=== PATIENT | female | born 1950 | race Caucasian/White ===

== ENCOUNTER → 2017-08-07 | Day surgery (SDC) | payer MEDICARE ==
[2017-08-06 11:52] LABS: BASOPHILS % 0.4 % (0.0-1.0); EOSINOPHILS # (AUTO) 0.1 (0.0-0.4); EOSINOPHILS % 1.9 % (0.0-6.0); HEMATOCRIT 36.5 % (34.2-44.1); HEMOGLOBIN 11.5 g/dL (12.0-16.0); LYMPHOCYTES # (AUTO) 1.2 (1.0-3.2); MEAN CORPUSCULAR HEMOGLOBIN 27.8 pg (28-32); MEAN CORPUSCULAR HGB CONC 31.5 g/dL (31-35); MEAN CORPUSCULAR VOLUME 88.2 fL (81-99); MONOCYTES # (AUTO) 0.5 (0.2-0.8); NEUTROPHILS % 63.5 % (38.7-80.0); PLATELET COUNT 225 x10e3/uL (140-360); RED BLOOD COUNT 4.14 x10e6/uL (3.6-5.1); RED CELL DISTRIBUTION WIDTH 13.5 % (11.7-14.4)
[2017-08-06 12:13] LABS: ANION GAP 13.7 mmol/L (8-16); BLOOD UREA NITROGEN 13 mg/dL (7-26); BUN/CREATININE RATIO 17 (6-25); CALCIUM 9.7 mg/dL (8.4-10.2); CARBON DIOXIDE 32 mmol/L (22-29); CHLORIDE 106 mmol/L (98-107); CREATININE, SERUM 0.76 mg/dL (0.57-1.11); EST GLOMERULAR FILTRATION RATE > 60 ML/MIN (60-); GLUCOSE 106 mg/dL (74-118); POTASSIUM 4.7 mmol/L (3.5-5.1); SODIUM 147 mmol/L (136-145)
--- NOTE | 2017-08-06 12:22 | Diagnostic Imaging Report ---
PROCEDURE: Frontal and lateral views of the chest. COMPARISON: None. INDICATIONS: PRE-OP, RIGHT SHOULDER. DENIES CHEST COMPLAINTS FINDINGS: Lines/tubes: None. Lungs: The lungs are well inflated. Ill-defined 5 mm nodular density projecting in the left lower lung on the frontal view only, not seen on the lateral view, likely represents summation of vessels shadows. There is no evidence of pneumonia or pulmonary edema. Pleura: There is no pleural effusion or pneumothorax. Heart and mediastinum: Cardiac silhouette is mildly enlarged. Pulmonary vasculature is normal. Bones and soft tissues: No acute bony abnormality. Degenerative changes in the thoracic spine. IMPRESSION: 1. mildly enlarged cardiac silhouette, without acute cardiopulmonary abnormalities. 2. 5 mm nodular density projecting in the left lower lung on the frontal view likely represents summation of vessels shadows. Prior films, if available, would be helpful for comparison. If no prior films can be obtained, recommend chest PA and lateral in 3 months to document stability. Alternatively, a chest CT may be obtained. Jesse Dixon M.D. Dictated by: Jesse Dixon M.D. on 08/06/2017 at 12:25 Electronically approved by: Jesse Dixon M.D. on 08/06/2017 at 12:25
[~2017-08-07] MED LIST: ASPIR 8181 MG PO; CALCIUM PO; CEFAZOLIN SOD 2 GM/D5W 50ML 50 ML IV ONE; DEXAMETHASONE SOD PHOS INJ 4 MG/ML VIAL ONE; DIAZEPAM5 MG PO; FENTANYL CITRATE/PF 100MCG/2 ML INJ ONE; FEOSOL PO; GLYCOPYRROLATE INJ 1MG/ 5 ML SYR ONE; HYDROCHLOROTHIA25 MG PO; LABETALOL HCL 20 ML ONE; LIDOCAINE HCL 2% LOCAL 20 ML VIAL ONE; LIDOCAINE HCL 2% LOCAL INJ 5 ML SDV VIAL INJ ONE; LOSARTAN POTASS50 MG PO; METOPROLOL SUCC50 MG PO; MIDAZOLAM HCL 2 MG/2 ML VIAL ONE; MULTIVITAMINS1 EAC7 PO; NEOSTIGMINE 5 MG/5ML SYR ONE; ONDANSETRON HCL INJ 2 MG/ML VIAL ONE; PRAVASTATIN SOD20 MG PO; PROPOFOL IV EMULSION 10 MG/ML 20 ML VIAL ONE; ROCURONIUM BROMIDE 10 MG/ML 5ML VIAL ONE; ROPIVACAINE 0.5% 5 MG/ML 30 ML SDV ONE; SEVOFLURANE INHAL SOLN 250 ML PEN BTL ONE; VITAMIN D3 PO
--- OUTSIDE RECORDS SUMMARY | 2017-08-07 07:11 | XMS REPORT ---
Author Author [facility] Address Unknown Phone Unavailable Care Team Providers Care Bag Machine Tender Name Role Phone HEATHER CUNNINGHAM Unavailable Unavailable Problems This patient has no known problems. Allergies, Adverse Reactions, Alerts This patient has no known allergies or adverse reactions. Medications This patient has no known medications. Results Test Description Test Time Test Comments Text Results Atomic Results Result Comments CHEST 2 VIEWS [place] [id number] Patient Name: JIGNESH MILLARD MR #: [id number] : 1950 Age/Sex: 66/F Req #: [id number] Adm Physician: Ordered by: HEATHER CUNNINGHAM MD Report #: [id number] Location: OR Room/Bed: Procedure: [id number] DX/CHEST 2 VIEWS Exam Date: 08/06/17 Exam Time: 1200 REPORT STATUS: Signed PROCEDURE: Frontal and lateral views of the chest. COMPARISON: None. INDICATIONS: PRE-OP, RIGHT SHOULDER. DENIES CHEST COMPLAINTS FINDINGS: Lines/tubes: None. Lungs: The lungs are well inflated. Ill-defined 5 mm nodular density projecting in the left lower lung on the frontal view only, not seen on the lateral view, likely represents summation of vessels shadows. There is no evidence of pneumonia or pulmonary edema. Pleura: There is no pleural effusion or pneumothorax. Heart and mediastinum: Cardiac silhouette is mildly enlarged. Pulmonary vasculature is normal. Bones and soft tissues: No acute bony abnormality. Degenerative changes in the thoracic spine. IMPRESSION: 1. mildly enlarged cardiac silhouette, without acute cardiopulmonary abnormalities. 2. 5 mm nodular density projecting in the left lower lung on the frontal view likely represents summation of vessels shadows. Prior films, if available, would be helpful for comparison. If no prior films can be obtained, recommend chest PA and lateral in 3 months to document stability. Alternatively, a chest CT may be obtained. Tadeo Dixon M.D. Dictated by: Tadeo Dixon M.D. on 08/06/2017 at 12:25 Electronically approved by: Tadeo Dixon M.D. on 2017 at 12:25 Dictated By: TADEO DIXON MD 1225 Transcribed By: EDE on 1225 COPY TO: HEATHER CUNNINGHAM MD
--- NOTE | 2017-08-08 09:33 | Operative Report ---
DATE OF PROCEDURE: August 07, 2017 PREOPERATIVE DIAGNOSES 1. Right shoulder rotator cuff tear. 2. Right shoulder acromioclavicular joint arthrosis. POSTOPERATIVE DIAGNOSES 1. Right shoulder rotator cuff tear. 2. Right shoulder synovitis. 3. 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 4. Right shoulder intra-articular loose bodies. 5. Right shoulder acromioclavicular joint arthritis. OPERATIONS/PROCEDURES PERFORMED 1. The patient underwent a right shoulder examination under anesthesia. 2. Right shoulder arthroscopy. 3. Right shoulder arthroscopic debridement of synovitis. 4. Right shoulder arthroscopic chondroplasty of the glenoid and humeral head. 5. Right shoulder arthroscopic removal of several intra-articular loose bodies. 6. Right shoulder arthroscopic subacromial decompression and acromioplasty. 7. Right shoulder arthroscopic rotator cuff repair. 8. Right shoulder arthroscopic distal clavicle resection. FACILITY ENVIRONMENTAL TECHNICIAN: None. BLOOD LOSS: Approximately 10 mL. ANESTHESIA: General endotracheal intubation anesthesia, as well as a regional block. IV FLUIDS: Per the anesthesia record. BRIEF DESCRIPTION OF THE PATIENT'S OPERATIVE PROCEDURE: Ms. Morris was taken to the operating room and placed in the supine position on the operating table. Following induction of general anesthesia, the patient's operating room table was converted to a beach chair type position. The patient was found to have a stable shoulder. There were no gross abnormalities. The upper extremity was prepped and draped in a standard surgical fashion. Standard posterolateral and anterior portal was created without difficulty. Scope was placed in the shoulder joint atraumatically. Examination of glenohumeral articulation demonstrated chondromalacia of both surfaces. There was synovitis in the shoulder joint. There were multiple loose bodies within the shoulder. There was a near full-thickness rotator cuff tear involving the anterior leading edge of the rotator cuff tissue. The shaver was placed in the shoulder joint, and the synovitis was debrided. Chondroplasties of the humeral head and glenoid were performed. The intra-articular loose bodies were also removed at this time. A shaver was used to debride the torn rotator cuff. The remaining fibers of the rotator cuff tissue were elevated from their insertion. The shaver was again used to debride the insertion site for the rotator cuff tissue to a bleeding bony bed. The shoulder was then deflated of its sterile normal saline. The scope was then placed in the subacromial space. Significant bursal inflammation was encountered. A lateral portal was created through an outside-in technique. A shaver was used to provide the patient a bursectomy. The rotator cuff injury was easily identified. A shaver was used to further debride the insertion site to a bleeding bony bed. An anterolateral portal was created without difficulty. A suture anchor was inserted into the greater tuberosity of the humerus, and the suture arms from that anchor were then woven through the rotator cuff tissue. Rotator tissue was advanced and tied firmly into its normal insertion site repairing the rotator cuff injury. The coracoacromial ligament was then resected. An aggressive acromioplasty was performed. The shoulder was placed through a range of motion and demonstrated no impingement. The anterior portal was advanced into the subacromial space at the level of the AC joint. A shaver was used to isolate the AC joint, and then resect a 1-cm section of the distal clavicle. The scope was transferred the anterior portal to confirm complete resection of the distal clavicle. The shoulder was then deflated of its sterile normal saline. The portal sites were closed in a single layer fashion. Sterile dressings were applied. The patient was provided a shoulder immobilizer, awakened and taken to the postanesthesia care in stable condition. Job#: [id number] ADRIAN
== END | disposition home or self-care (01) ==
LOC: OR 07:09
PROVIDERS: ATTEND Specialist
DX: S46.091A Other injury of muscle(s) and tendon(s) of the rotator cuff of right shoulder, initial encounter (principal); M19.011 Primary osteoarthritis, right shoulder; M65.811 Other synovitis and tenosynovitis, right shoulder; M94.211 Chondromalacia, right shoulder; M24.011 Loose body in right shoulder; M54.5 Low back pain; I10 Essential (primary) hypertension; I25.2 Old myocardial infarction; K21.9 Gastro-esophageal reflux disease without esophagitis; F41.9 Anxiety disorder, unspecified; X50.0XXA Overexertion from strenuous movement or load, initial encounter; Y93.89 Activity, other specified; Y92.512 Supermarket, store or market as the place of occurrence of the external cause; Z88.5 Allergy status to narcotic agent; Z01.810 Encounter for preprocedural cardiovascular examination; Z01.812 Encounter for preprocedural laboratory examination; Z01.818 Encounter for other preprocedural examination; Z79.82 Long term (current) use of aspirin
CPT/HCPCS: 29824; 29826; 29827; 36415; 71046; 80048; 85025; 93005; J1100; J2001 ×2; J2250; J2405; J2795; J3490 ×2

== ENCOUNTER → 2017-11-08 | Outpatient (RCR) | payer MEDICARE ==
[~2017-11-08] MED LIST changes: -CEFAZOLIN SOD 2 GM/D5W 50ML 50 ML IV ONE; -DEXAMETHASONE SOD PHOS INJ 4 MG/ML VIAL ONE; -FENTANYL CITRATE/PF 100MCG/2 ML INJ ONE; -GLYCOPYRROLATE INJ 1MG/ 5 ML SYR ONE; -LABETALOL HCL 20 ML ONE; -LIDOCAINE HCL 2% LOCAL 20 ML VIAL ONE; -LIDOCAINE HCL 2% LOCAL INJ 5 ML SDV VIAL INJ ONE; -MIDAZOLAM HCL 2 MG/2 ML VIAL ONE; -NEOSTIGMINE 5 MG/5ML SYR ONE; -ONDANSETRON HCL INJ 2 MG/ML VIAL ONE; -PROPOFOL IV EMULSION 10 MG/ML 20 ML VIAL ONE; -ROCURONIUM BROMIDE 10 MG/ML 5ML VIAL ONE; -ROPIVACAINE 0.5% 5 MG/ML 30 ML SDV ONE; -SEVOFLURANE INHAL SOLN 250 ML PEN BTL ONE
== END ==
LOC: PT 10-29 13:45
PROVIDERS: ATTEND Specialist
DX: S46.091D Other injury of muscle(s) and tendon(s) of the rotator cuff of right shoulder, subsequent encounter (principal); Z47.89 Encounter for other orthopedic aftercare; M19.011 Primary osteoarthritis, right shoulder; M25.511 Pain in right shoulder; M25.611 Stiffness of right shoulder, not elsewhere classified; M62.81 Muscle weakness (generalized)
CPT/HCPCS: 97010 ×2; 97110 ×5; 97161; G8984; G8985

== ENCOUNTER 2017-12-06 11:00 | Outpatient (RCR) | payer MEDICARE | END 2017-12-08 | LOC: PT 11:00 | PROVIDERS: ATTEND Specialist | DX: S46.091D Other injury of muscle(s) and tendon(s) of the rotator cuff of right shoulder, subsequent encounter (principal); Z47.89 Encounter for other orthopedic aftercare; M19.011 Primary osteoarthritis, right shoulder; M25.511 Pain in right shoulder; M25.611 Stiffness of right shoulder, not elsewhere classified; M62.81 Muscle weakness (generalized) | CPT/HCPCS: 97010 ×2; 97110 ×6; G8984; G8985 ==

== ENCOUNTER 2018-01-06 10:58 | Outpatient (RCR) | payer MEDICARE | END 2018-01-08 | LOC: PT 10:58 | PROVIDERS: ATTEND Specialist | DX: S46.091D Other injury of muscle(s) and tendon(s) of the rotator cuff of right shoulder, subsequent encounter (principal); Z47.89 Encounter for other orthopedic aftercare; M19.011 Primary osteoarthritis, right shoulder; M25.511 Pain in right shoulder; M25.611 Stiffness of right shoulder, not elsewhere classified; M62.81 Muscle weakness (generalized) | CPT/HCPCS: 97010 ×5; 97110 ×10; G8984; G8985 ==

== ENCOUNTER 2018-02-03 10:00 | Outpatient (RCR) | payer MEDICARE | END 2018-02-07 | LOC: PT 10:00 | PROVIDERS: ATTEND Specialist | DX: S46.091D Other injury of muscle(s) and tendon(s) of the rotator cuff of right shoulder, subsequent encounter (principal); Z47.89 Encounter for other orthopedic aftercare; M19.011 Primary osteoarthritis, right shoulder; M25.511 Pain in right shoulder | CPT/HCPCS: 97010; 97110 ×7; 97140 ×5; G8984; G8985 ==

== ENCOUNTER → 2018-03-10 | Outpatient (RCR) | payer MEDICARE | LOC: PT 02-10 10:51 | PROVIDERS: ATTEND Specialist | DX: S46.091D Other injury of muscle(s) and tendon(s) of the rotator cuff of right shoulder, subsequent encounter (principal); Z47.89 Encounter for other orthopedic aftercare; M25.511 Pain in right shoulder; M19.011 Primary osteoarthritis, right shoulder | CPT/HCPCS: 97110 ×8; 97139; 97140 ×5; G8984; G8985 ==

== ENCOUNTER 2018-03-14 10:04 | Outpatient (RCR) | payer MEDICARE | END 2018-04-10 | LOC: PT 10:04 | PROVIDERS: ATTEND Specialist | DX: S46.091D Other injury of muscle(s) and tendon(s) of the rotator cuff of right shoulder, subsequent encounter (principal); Z47.89 Encounter for other orthopedic aftercare; M25.511 Pain in right shoulder; M19.011 Primary osteoarthritis, right shoulder ==

== ENCOUNTER 2018-04-11 08:47 | Outpatient (RCR) | payer MEDICARE | END 2018-05-08 | LOC: PT 08:47 | PROVIDERS: ATTEND Specialist | DX: S46.091D Other injury of muscle(s) and tendon(s) of the rotator cuff of right shoulder, subsequent encounter (principal); M25.511 Pain in right shoulder; M19.011 Primary osteoarthritis, right shoulder | CPT/HCPCS: 97139 ==

== ENCOUNTER → 2018-07-09 | Day surgery (SDC) | payer MEDICARE ==
[2018-07-08 10:31] LABS: BASOPHILS % 0.9 % (0.0-1.0); EOSINOPHILS # (AUTO) 0.1 (0.0-0.4); EOSINOPHILS % 2.6 % (0.0-6.0); HEMATOCRIT 32.4 % (34.2-44.1); LYMPHOCYTES % 28.9 % (18.0-39.1); MEAN CORPUSCULAR HEMOGLOBIN 25.7 pg (28-32); MEAN CORPUSCULAR HGB CONC 30.9 g/dL (31-35); MEAN CORPUSCULAR VOLUME 83.3 fL (81-99); MONOCYTES # (AUTO) 0.4 (0.2-0.8); MONOCYTES % 11.1 % (4.4-11.3); NEUTROPHILS # (AUTO) 1.9 (2.1-6.9); NEUTROPHILS % 56.5 % (38.7-80.0); PLATELET COUNT 220 x10e3/uL (140-360); RED BLOOD COUNT 3.89 x10e6/uL (3.6-5.1); RED CELL DISTRIBUTION WIDTH 13.6 % (11.7-14.4)
[2018-07-08 10:56] LABS: ANION GAP 11.6 mmol/L (8-16); BLOOD UREA NITROGEN 14 mg/dL (7-26); BUN/CREATININE RATIO 18 (6-25); CALCIUM 9.1 mg/dL (8.4-10.2); CARBON DIOXIDE 31 mmol/L (22-29); CHLORIDE 100 mmol/L (98-107); CREATININE, SERUM 0.76 mg/dL (0.57-1.11); EST GLOMERULAR FILTRATION RATE > 60 ML/MIN (60-); GLUCOSE 104 mg/dL (74-118); POTASSIUM 3.6 mmol/L (3.5-5.1); SODIUM 139 mmol/L (136-145)
--- NOTE | 2018-07-08 11:08 | Diagnostic Imaging Report ---
EXAMINATION: CHEST 2 VIEWS INDICATION: Pre-admit. COMPARISON: None FINDINGS: TUBES and LINES: None. LUNGS: Lungs are well inflated. There is no evidence of pneumonia or pulmonary edema. Mild patchy bibasilar opacities, likely atelectasis. PLEURA: No pleural effusion or pneumothorax. HEART AND MEDIASTINUM: The cardiomediastinal silhouette is unremarkable. There are atherosclerotic calcifications within the aorta. BONES AND SOFT TISSUES: No acute osseous abnormality. UPPER ABDOMEN: No free air under the diaphragm. Surgical changes project over the left upper abdomen. IMPRESSION: No acute radiographic abnormality. Signed by: Dr. Richard Hernandez MD on 07/08/2018 11:04 AM
[~2018-07-09] MED LIST changes: +ACETAMINOPHEN 1000 MG/100 ML 100 ML IV ONE; +ADVIL200 MG PO; +BUPIVACAINE 0.5%/EPI 30 ML SDV INJ ONE; +CEFAZOLIN SOD 2 GM/D5W 50ML 50 ML IV ONE; +CYMBALTA20 MG PO; +DEXAMETHASONE SOD PHOS INJ 4 MG/ML VIAL ONE; +FENTANYL CITRATE/PF 100MCG/2 ML INJ ONE; +GAS RELIEF125 MG PO; +LIDOCAINE HCL 2% LOCAL INJ 5 ML SDV VIAL INJ ONE; +MIDAZOLAM HCL 2 MG/2 ML VIAL ONE; +ONDANSETRON HCL INJ 2MG/ML 2ML 2 MG/ML VIAL ONE; +PROPOFOL IV EMULSION 10 MG/ML 20 ML VIAL ONE; +SEVOFLURANE INHAL SOLN 250 ML PEN BTL ONE
[2018-07-09 11:05] VITALS: BP 140/73
--- NOTE | 2018-07-10 19:37 | Operative Report ---
DATE OF PROCEDURE: 07/09/2018 SURGEON: Ko Hernandez MD PREOPERATIVE DIAGNOSES: 1. Left knee medial and lateral meniscus tear. 2. Left knee degenerative joint disease in knee. POSTOPERATIVE DIAGNOSES: 1. Left knee medial and lateral meniscus tear. 2. Left knee degenerative joint disease in knee. OPERATION/PROCEDURE PERFORMED: The patient underwent a left knee exam under anesthesia, left knee arthroscopy, left knee partial medial meniscectomy, left knee partial lateral meniscectomy, left knee chondroplasty of patella, trochlea, the medial femoral condyle, the medial tibial plateau, lateral femoral condyle, and lateral tibial plateau. RAISED PRINTER: JOSESITO Alvarado ANESTHESIA: General intubation anesthesia. IV FLUIDS: Per the anesthesia record. OPERATIVE PROCEDURE: Ms. Morris was taken to the operating room, placed in supine position on the operating room table. Following induction of general anesthesia as well as endotracheal intubation, the patient's left lower extremity was examined with anesthesia. She was found to have a lot of effusion within the knee joint, but otherwise ligamentously stable knee. The patient's lower extremities were then prepped and draped in standard surgical fashion. A two port technique was used to provide this patient arthroscopic evaluation of the knee joint. Examination of suprapatellar pouch and medial lateral gutters found no evidence of loose bodies. There was however evidence of chondromalacia of the patella and trochlear surfaces. The scope was advanced to the medial compartment. Exam of medial compartment demonstrated a torn medial meniscus. There was also chondromalacia articulating surfaces. A combination of biting forceps and a motorized shaver were used to resect the torn portion of meniscus. Chondroplasties of the medial femoral condyle and medial tibial plateau were performed at this time. Scope was then advanced into the intercondylar notch and the anterior cruciate ligament was identified and found to be intact. Scope was then advanced to the lateral compartment and it showed lateral meniscus was encountered. There was also chondromalacia of the articulating surfaces. A combination of body forceps and a motorized shaver were used to resect the torn portion of meniscus. Chondroplasties of the lateral femoral condyle and lateral tibial plateau were performed at this time. The scope was then advanced in suprapatellar pouch and chondroplasties of the patella trochlear performed. The knee was deflated of its sterile saline. Each of the portal sites were closed with 4-0 nylon suture. The portal sites as well as the knee itself were then injected with 0.5% Marcaine with epinephrine. Sterile dressings were applied and the patient was awakened and taken to the postanesthesia care unit in stable condition. MD MENDOZA Jaquez/SHIRLEY /[id number]
== END | disposition home or self-care (01) ==
LOC: OR 05:55
PROVIDERS: ATTEND Specialist
DX: S83.222A Peripheral tear of medial meniscus, current injury, left knee, initial encounter (principal); S83.262A Peripheral tear of lateral meniscus, current injury, left knee, initial encounter; M17.12 Unilateral primary osteoarthritis, left knee; M22.42 Chondromalacia patellae, left knee; I10 Essential (primary) hypertension; I25.10 Atherosclerotic heart disease of native coronary artery without angina pectoris; K58.9 Irritable bowel syndrome, unspecified; K21.9 Gastro-esophageal reflux disease without esophagitis; M54.5 Low back pain; F32.9 Major depressive disorder, single episode, unspecified; F41.9 Anxiety disorder, unspecified; X50.1XXA Overexertion from prolonged static or awkward postures, initial encounter; Y93.89 Activity, other specified; Y92.003 Bedroom of unspecified non-institutional (private) residence as the place of occurrence of the external cause; Z88.6 Allergy status to analgesic agent; Z01.810 Encounter for preprocedural cardiovascular examination; Z01.812 Encounter for preprocedural laboratory examination; Z01.818 Encounter for other preprocedural examination
CPT/HCPCS: 29880; 36415; 71046; 80048; 85025; 93005; J0131; J0690; J1100; J2001; J2250; J2405; J2704

== ENCOUNTER → 2018-08-08 | Outpatient (RCR) | payer MEDICARE ==
[~2018-08-08] MED LIST changes: -ACETAMINOPHEN 1000 MG/100 ML 100 ML IV ONE; -BUPIVACAINE 0.5%/EPI 30 ML SDV INJ ONE; -CEFAZOLIN SOD 2 GM/D5W 50ML 50 ML IV ONE; -DEXAMETHASONE SOD PHOS INJ 4 MG/ML VIAL ONE; -FENTANYL CITRATE/PF 100MCG/2 ML INJ ONE; -LIDOCAINE HCL 2% LOCAL INJ 5 ML SDV VIAL INJ ONE; -MIDAZOLAM HCL 2 MG/2 ML VIAL ONE; -ONDANSETRON HCL INJ 2MG/ML 2ML 2 MG/ML VIAL ONE; -PROPOFOL IV EMULSION 10 MG/ML 20 ML VIAL ONE; -SEVOFLURANE INHAL SOLN 250 ML PEN BTL ONE
== END ==
LOC: PT 07-30 10:04
PROVIDERS: ATTEND Specialist
DX: M17.12 Unilateral primary osteoarthritis, left knee (principal); M62.81 Muscle weakness (generalized); R26.2 Difficulty in walking, not elsewhere classified; M25.562 Pain in left knee; M25.662 Stiffness of left knee, not elsewhere classified

== ENCOUNTER 2018-09-05 09:48 | Outpatient (RCR) | payer MEDICARE | END 2018-09-07 | LOC: PT 09:48 | PROVIDERS: ATTEND Specialist | DX: M17.12 Unilateral primary osteoarthritis, left knee (principal); M62.81 Muscle weakness (generalized); R26.2 Difficulty in walking, not elsewhere classified; M25.562 Pain in left knee; M25.662 Stiffness of left knee, not elsewhere classified | CPT/HCPCS: 97139 ==

== ENCOUNTER 2018-10-07 09:58 | Outpatient (RCR) | payer MEDICARE | END 2018-10-08 | LOC: PT 09:58 | PROVIDERS: ATTEND Specialist | DX: M17.12 Unilateral primary osteoarthritis, left knee (principal); M62.81 Muscle weakness (generalized); R26.2 Difficulty in walking, not elsewhere classified; M25.562 Pain in left knee; M25.662 Stiffness of left knee, not elsewhere classified ==

== ENCOUNTER 2018-10-24 11:00 | Outpatient (RCR) | payer MEDICARE | END 2018-11-08 | LOC: PT 11:00 | PROVIDERS: ATTEND Specialist | DX: M17.12 Unilateral primary osteoarthritis, left knee (principal); M25.562 Pain in left knee; M62.81 Muscle weakness (generalized); R26.2 Difficulty in walking, not elsewhere classified | CPT/HCPCS: 97139 ==

== ENCOUNTER → 2019-02-03 | Outpatient (CLI) | payer MEDICARE ==
[~2019-02-03] MED LIST changes: +IOPAMIDOL 370 MG/ML 200 ML INFUS..BTL INJ ONE; +SODIUM CHLORIDE 0.9% 50ML 50 ML ONE
[2019-02-03 14:07] LABS: BLOOD UREA NITROGEN 9 mg/dL (7-26); BUN/CREATININE RATIO 13 (6-25); CREATININE, SERUM 0.69 mg/dL (0.57-1.11); EST GLOMERULAR FILTRATION RATE > 60 ML/MIN (60-)
--- NOTE | 2019-02-03 15:54 | Diagnostic Imaging Report ---
EXAM: CT Chest WITH intravenous contrast 02/03/2019 1:38 PM INDICATION: Trauma COMPARISON: Chest radiograph of 07/08/2018 TECHNIQUE: Chest was scanned utilizing a multidetector helical scanner from the lung apex through the level of the adrenal glands after administration of IV contrast. Coronal and sagittal reformations were obtained. Routine protocol was performed. IV CONTRAST: 100mL Isovue 370 RADIATION DOSE: Total DLP: 492.5 mGy*cm. Dose modulation, iterative reconstruction, and/or weight based adjustment of the mA/kV was utilized to reduce the radiation dose to as low as reasonably achievable. COMPLICATIONS: None FINDINGS: LINES/ TUBES: None. LUNGS AND AIRWAYS: The central airways are patent. No focal consolidation. No pulmonary edema. No evidence of pulmonary hemorrhage or contusion. Mild bibasilar dependent subsegmental atelectasis. Right upper lobe 3 mm pulmonary nodules (series 3 image 48, 56). PLEURA: No pneumothorax. No pleural effusion or pneumothorax. HEART AND MEDIASTINUM: The thyroid gland is normal. No supraclavicular, mediastinal, or hilar lymphadenopathy. The heart is not enlarged. No pericardial effusion. Scattered atherosclerotic calcifications of the coronary arteries, aorta, and proximal great vessels.. No evidence of aortic dissection. The main pulmonary artery is not enlarged. No central pulmonary embolism. UPPER ABDOMEN: Limited images of the upper abdomen demonstrate no focal abnormality of the partially visualized liver, spleen, pancreas, adrenals, or upper most kidneys. Postoperative findings of gastric surgery. BONES: No acute osseous injury. No suspicious lytic or blastic lesions. Vertebral body hemangioma at L1. Implanted neurostimulator device with partially visualized lead terminating in the spinal canal at the level of T11. SOFT TISSUES: Unremarkable. IMPRESSION: No acute traumatic injury to the thorax. Right upper lobe pulmonary nodules measure up to 3 mm. If the patient is low risk, no further imaging follow-up is necessary. If the patient is high risk, chest CT at 12 months is optional per Fleischner society recommendations 2017. Scattered atherosclerotic calcifications including of the coronary arteries. Signed by: Tisha Abad MD on 02/03/2019 3:51 PM
== END ==
LOC: CT 13:19
PROVIDERS: ATTEND Family Medicine
DX: R07.89 Other chest pain (principal)
CPT/HCPCS: 36415; 71260; 82565; 84520; Q9967